=== PATIENT | female | born 1930 | race Hispanic/Latino ===

== ENCOUNTER 2017-04-18 09:56 | Inpatient (IN) | payer MEDICARE ==
[~2017-04-18] VITALS: Ht 160 cm; Wt 77.1 kg
[2017-04-18 10:23] LABS: BASOPHILS % (AUTO) 0.6 % (0.0-5.0); EOSINOPHILS % (AUTO) 1.8 % (0.0-8.0); HEMATOCRIT 36.8 % (36-48); LYMPHOCYTES % (AUTO) 27.1 % (21.0-51.0); MEAN CORPUSCULAR HEMOGLOBIN 30.2 pg (27.0-33.0); MEAN CORPUSCULAR HGB CONC 33.9 g/dL (32.0-36.0); MEAN CORPUSCULAR VOLUME 89.1 fL (79-99); MONOCYTES % (AUTO) 7.9 % (3.0-13.0); NEUTROPHILS % (AUTO) 62.6 % (40.0-77.0); PLATELET COUNT (AUTO) 193 K/uL (130-400); RED BLOOD CELL COUNT(AUTO) 4.13 MIL/uL (4.00-5.50); RED CELL DISTRIBUTION WIDTH 14.4 % (11.0-15.5); WHITE BLOOD COUNT (AUTO) 5.6 K/uL (4.8-10.8)
[2017-04-18 10:33] LABS: CREATININE 0.9 mg/dL (0.5-1.5); POTASSIUM 4.1 mmol/L (3.5-5.1)
[2017-04-18 10:34] LABS: INR 0.95 (0.85-1.15); PARTIAL THROMBOPLASTIN TIME 25.5 SEC (26.3-35.5)
[2017-04-18] MEDS ORDERED: CLOPIDOGREL BISULFATE 75 MG TAB ONE ×3 (10:35→11:40)
[2017-04-18] MEDS ORDERED: NITROGLYCERIN 0.4 MG SL TAB SL ONE (10:35)
[2017-04-18 10:37] LABS: ALBUMIN 3.8 g/dL (3.5-5.0); BILIRUBIN,TOTAL 0.8 mg/dL (0.2-1.0); TOTAL PROTEIN, SERUM 6.9 g/dL (6.0-8.3)
[2017-04-18] MEDS ORDERED: ALBUTEROL SULFATE 0.083% 2.5 MG/3 ML INH IH ONE (10:43)
[2017-04-18 11:14] LABS: B-TYPE NATRIURETIC PEPTIDE 241 pg/mL (0-100)
[2017-04-18] MEDS ORDERED: NITROGLYCERIN 1GM/1 INCH PACKET TD ONE (12:47)
[2017-04-18] MEDS ORDERED: SODIUM CHLORIDE 0.9% 1000ML 1,000 ML IV ONE (12:47)
[2017-04-18] MEDS ORDERED: ENOXAPARIN SODIUM 100 MG/1 ML SQ ONE (12:47)
[2017-04-18] MEDS ORDERED: METOPROLOL TARTRATE 25 MG TAB ONE (12:48)
[2017-04-18] MEDS ORDERED: HYDRALAZINE HCL 20 MG/ML VIAL ONE (16:14)
[2017-04-18] MEDS ORDERED: ONDANSETRON HCL 4 MG/2 ML VIAL ONE (16:47)
[2017-04-18 17:18] LABS: CREATINE KINASE MB 1.4 ng/mL (0.5-3.6)
[2017-04-18 17:19] LABS: TROPONIN I 0.64 ng/mL (0.00-0.06)
[2017-04-18 18:12] VITALS: BP 198/97
[2017-04-18] MEDS ORDERED: HYDRALAZINE HCL 20 MG/ML VIAL IV PRN (19:15)
[2017-04-18] MEDS ORDERED: METF500T6 PO (20:17)
[2017-04-18] MEDS ORDERED: HYDR25TA PO (20:17)
[2017-04-18] MEDS ORDERED: CHOL200026 PO (20:17)
[2017-04-18] MEDS ORDERED: ROSU5TAB PO (20:17)
[2017-04-18] MEDS ORDERED: CARV25TA PO (20:17)
[2017-04-18] MEDS ORDERED: LEVO125T95 PO (20:17)
[2017-04-18] MEDS ORDERED: GLIP2.5T PO (20:17)
[2017-04-18] MEDS ORDERED: CLOP75TA32 PO (20:17)
[2017-04-18] MEDS ORDERED: LISI-613 PO (20:17)
[2017-04-18] MEDS ORDERED: METOPROLOL TARTRATE 25 MG TAB PO SCH (21:00)
[2017-04-18] MEDS ORDERED: ENOXAPARIN SODIUM 80 MG/0.8 ML SQ SCH (21:00)
[2017-04-19] VITALS (9 sets, daily range): BP systolic 120–184; BP diastolic 66–88
[2017-04-19] MEDS ORDERED: SODIUM CHLORIDE 0.9% 1000ML 1,000 ML IV SCH (01:15)
[2017-04-19] MEDS ORDERED: NITROGLYCERIN 1GM/1 INCH PACKET TD ONE (01:25)
[2017-04-19] MEDS ORDERED: SODIUM CHLORIDE 0.9% 500ML 500 ML IV ONE (01:26)
[2017-04-19] MEDS ORDERED: NITROGLYCERIN 1GM/1 INCH PACKET TD SCH (01:30)
[2017-04-19 04:53] LABS: CREATINE KINASE MB 1.1 ng/mL (0.5-3.6); TROPONIN I 0.28 ng/mL (0.00-0.06)
[2017-04-19] MEDS ORDERED: ENOXAPARIN SODIUM 80 MG/0.8 ML SQ SCH (09:00)
[2017-04-19] MEDS ORDERED: GABA-529 PO (09:36)
[2017-04-19] MEDS: CLOPIDOGREL BISULFATE 75 MG TAB PO SCH (10:25)
[2017-04-19] MEDS: METFORMIN HCL 500 MG TABLET PO SCH (17:27)
[2017-04-19] MEDS ORDERED: LEVOTHYROXINE 125 MCG TABLET ONE (17:31)
[2017-04-19] MEDS ORDERED: LISINOPRIL 2.5 MG TABLET ONE (19:28)
[2017-04-19] MEDS ORDERED: METOPROLOL TARTRATE 25 MG TAB ONE (19:28)
[2017-04-19] MEDS ORDERED: ATORVASTATIN CALCIUM 20 MG TABLET ONE (19:28)
[2017-04-19] MEDS: METOPROLOL TARTRATE 25 MG TAB PO SCH (19:35)
[2017-04-19] MEDS: GABAPENTIN 100 MG CAPSULE PO SCH (19:35)
[2017-04-19] MEDS ORDERED: ATORVASTATIN CALCIUM 10 MG TABLET PO SCH (21:00)
[2017-04-19] MEDS: LISINOPRIL 5 MG TABLET PO SCH (21:00)
[2017-04-19] MEDS: ATORVASTATIN CALCIUM 10 MG TABLET PO SCH (21:00)
[2017-04-20 03:43] VITALS: BP 130/74
[2017-04-20] MEDS ORDERED: DEXTROSE 50%-WATER 50 ML DISP.SYRIN IV PRN (05:30)
[2017-04-20] MEDS ORDERED: GLUCAGON 1MG KIT 1 MG ML IM PRN (05:30)
[2017-04-20] MEDS: GLIPIZIDE XL 2.5MG TAB PO SCH (06:01)
[2017-04-20] MEDS: LEVOTHYROXINE 125 MCG TABLET PO SCH (06:02)
[2017-04-20 07:30] VITALS: BP 166/73
[2017-04-20] MEDS: INSULIN HUMULIN R 100 UNIT/ML 3ML SQ SCH ×4 (07:30→21:00)
[2017-04-20] MEDS: LISINOPRIL 5 MG TABLET PO SCH (09:00)
[2017-04-20] MEDS: ***HM***(Cholecalciferol (Vitamin D3) (Vitamin D3) 2,000 UNIT) PO SCH (09:00)
[2017-04-20] MEDS ORDERED: GADOBENATE DIMEGLUMINE 20 ML IV ONE (09:41)
[2017-04-20] MEDS: REGADENOSON 0.4 MG/5 ML PF SYG IVP SCH ×2 (09:45→15:51)
[2017-04-20] MEDS: HYDROCHLOROTHIAZIDE 25 MG TABLET PO SCH (11:14)
[2017-04-20] MEDS: CLOPIDOGREL BISULFATE 75 MG TAB PO SCH (11:14)
[2017-04-20] MEDS: GABAPENTIN 100 MG CAPSULE PO SCH ×2 (11:14→20:10)
[2017-04-20] MEDS: LISINOPRIL 20 MG TABLET PO SCH (11:15)
[2017-04-20] MEDS: METOPROLOL TARTRATE 25 MG TAB PO SCH (11:15)
[2017-04-20] MEDS: ENOXAPARIN SODIUM 40 MG/0.4 ML SYRINGE SQ SCH (11:16)
[2017-04-20 11:45] VITALS: BP 175/63
[2017-04-20] MEDS: METFORMIN HCL 500 MG TABLET PO SCH ×2 (12:29→17:03)
[2017-04-20 16:25] VITALS: BP 151/95
[2017-04-20 19:41] VITALS: BP 160/66
[2017-04-20] MEDS: ATORVASTATIN CALCIUM 10 MG TABLET PO SCH (20:09)
[2017-04-20] MEDS: METOPROLOL TARTRATE 50 MG TAB PO SCH (20:10)
[2017-04-21 00:19] VITALS: BP 134/50
[2017-04-21 03:47] VITALS: BP 118/57
[2017-04-21] MEDS: LEVOTHYROXINE 125 MCG TABLET PO SCH (05:49)
[2017-04-21] MEDS: GLIPIZIDE XL 2.5MG TAB PO SCH (05:49)
[2017-04-21] MEDS: INSULIN HUMULIN R 100 UNIT/ML 3ML SQ SCH (06:03)
[2017-04-21 07:13] VITALS: BP 122/53
[2017-04-21] MEDS: ***HM***(Cholecalciferol (Vitamin D3) (Vitamin D3) 2,000 UNIT) PO SCH (09:00)
[2017-04-21] MEDS: METFORMIN HCL 500 MG TABLET PO SCH (09:10)
[2017-04-21] MEDS: HYDROCHLOROTHIAZIDE 25 MG TABLET PO SCH (09:11)
[2017-04-21] MEDS: LISINOPRIL 20 MG TABLET PO SCH (09:11)
[2017-04-21] MEDS: CLOPIDOGREL BISULFATE 75 MG TAB PO SCH (09:11)
[2017-04-21] MEDS: METOPROLOL TARTRATE 50 MG TAB PO SCH (09:11)
[2017-04-21] MEDS: GABAPENTIN 100 MG CAPSULE PO SCH (09:11)
[2017-04-21] MEDS: ENOXAPARIN SODIUM 40 MG/0.4 ML SYRINGE SQ SCH (09:12)
[2017-04-21 11:51] VITALS: BP 127/41
== END 2017-04-21 13:00 | disposition home or self-care (01) | DRG 305 ==
LOC: EDH 09:56 → EDHIP 11:50 → 2DH 18:05
PROVIDERS: ADMIT Family Medicine; ATTEND Family Medicine
DX: I11.9 Hypertensive heart disease without heart failure (principal); I24.9 Acute ischemic heart disease, unspecified; E11.9 Type 2 diabetes mellitus without complications; I65.23 Occlusion and stenosis of bilateral carotid arteries; I10 Essential (primary) hypertension; I25.10 Atherosclerotic heart disease of native coronary artery without angina pectoris; E78.5 Hyperlipidemia, unspecified; E04.9 Nontoxic goiter, unspecified; E89.0 Postprocedural hypothyroidism; I44.7 Left bundle-branch block, unspecified; I25.2 Old myocardial infarction; Z83.3 Family history of diabetes mellitus; Z80.9 Family history of malignant neoplasm, unspecified; Z95.5 Presence of coronary angioplasty implant and graft; Z90.710 Acquired absence of both cervix and uterus; Z90.49 Acquired absence of other specified parts of digestive tract; Z88.6 Allergy status to analgesic agent; Z88.0 Allergy status to penicillin; I16.0 Hypertensive urgency
CPT/HCPCS: 36415; 70450; 70544; 70553; 71045; 76536; 78452; 80053; 82550; 82553; 82948; 83874; 83880; 84439; 84443; 84481; 84484; 85025; 85610; 85730; 87040; 87324; 87804; 93005; 93017; 93306; 93880; 94640; 96374; 99291; A9500; A9577; J0360; J1650; J2405; J2785; J7030; J7040

== ENCOUNTER → 2018-05-23 | Outpatient (CLI) | payer MEDICARE ==
[~2018-05-23] MED LIST: CARV25TA PO; CHOL200026 PO; CLOP75TA32 PO; GABA-529 PO; GLIP2.5T PO; HYDR25TA PO; LEVO125T95 PO; LISI-613 PO; METF-444 PO; ROSU5TAB PO
== END | disposition home or self-care (01) ==
LOC: SHCH 12:30
PROVIDERS: ATTEND Internal Medicine Cardiovascular Disease
DX: I51.7 Cardiomegaly (principal); I25.5 Ischemic cardiomyopathy
CPT/HCPCS: 93306

== ENCOUNTER → 2019-05-20 | Outpatient (CLI) | payer MEDICARE, OTHER ==
--- NOTE | 2019-05-20 10:30 | NUR ---
MBSS COMPLETED. NON-TRANSIENT PENETRATION WITH THIN LIQUIDS AND NECTAR-THICK LIQUIDS VIA LARGE CUP SIP. RECOMMEND REGULAR TEXTURE, NECTAR-THICK LIQUIDS VIA SMALL CUP SIP; PILLS WHOLE WITH LIQUIDS. RECOMMEND 1. SKILLED SPEECH THERAPY 2-3XWK TARGETING SWALLOWING *RECOMMEND NEUROMUSCULAR ELECTRICAL STIMULATION THERAPEUTIC TECHNIQUE 2. MBSS RE-EVALUATION RECOMMENDED 6WKS AFTER THERAPEUTIC INTERVENTION. ON AWAKE COUNSELOR EDUCATED Pt AND FAMILY ON RISKS AND CONSEQUENCES OF ASPIRATION. ON AWAKE COUNSELOR PROVIDED INSTRUCTIONS ON HOW TO REACH NECTAR-THICK LIQUIDS. THICKENER PROVIDED AT THIS TIME. RESULTS AND RECOMMENDATIONS PROVIDED VIA WRITTEN MODALITY. ALL QUESTIONS ANSWERED AT THIS TIME. Addendum: 05/20/19 at 1318 by RACQUEL DAILY [facility] Amended: Links added.
== END | disposition home or self-care (01) ==
LOC: RAH 10:31
PROVIDERS: ATTEND Internal Medicine Gastroenterology
DX: R13.13 Dysphagia, pharyngeal phase (principal); R13.12 Dysphagia, oropharyngeal phase
CPT/HCPCS: 74230; 92611

== ENCOUNTER → 2021-05-17 | Outpatient (CLI) | payer MEDICARE ==
[~2021-05-17] MED LIST changes: -LISI-613 PO; +LISI20TA24 PO
== END | disposition home or self-care (01) ==
LOC: RAH 07:27
PROVIDERS: ATTEND Otolaryngology
DX: H90.3 Sensorineural hearing loss, bilateral (principal); D23.20 Other benign neoplasm of skin of unspecified ear and external auricular canal; H70.92 Unspecified mastoiditis, left ear; I70.8 Atherosclerosis of other arteries; M47.812 Spondylosis without myelopathy or radiculopathy, cervical region; M43.5X2 Other recurrent vertebral dislocation, cervical region; Z98.890 Other specified postprocedural states
CPT/HCPCS: 70480; 70490; 70551